=== PATIENT | female | born 2000 | race Two or more races ===

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

== ENCOUNTER 2022-05-17 09:45 | Emergency (ER) | payer OTHER ==
[~2022-05-17] VITALS: Ht 170.2 cm; Wt 56.7 kg
[~2022-05-17 09:45] MED LIST: TUSICOF CAPLET1 EACH PO
[2022-05-17] MEDS ORDERED: IBU400 MG PO (13:03)
== END 2022-05-17 14:56 | disposition home or self-care (01) ==
LOC: EMR PED 09:45
DX: T14.90XA Injury, unspecified, initial encounter (principal); V49.3XXA Car occupant (driver) (passenger) injured in unspecified nontraffic accident, initial encounter; Y93.9 Activity, unspecified; Y92.413 State road as the place of occurrence of the external cause; Y99.9 Unspecified external cause status; M41.9 Scoliosis, unspecified

== ENCOUNTER 2022-07-31 16:21 | Emergency (ER) | payer OTHER ==
[~2022-07-31] VITALS: Ht 157.5 cm; Wt 56.7 kg
[~2022-07-31 16:21] MED LIST changes: +IBU400 MG PO
[2022-07-31] MEDS ORDERED: AMOX1TAB5 PO (18:06)
== END 2022-07-31 18:52 | disposition home or self-care (01) ==
LOC: ER 16:21 → EMR PED 16:24 → ER 16:24 → EMR PED 18:52
DX: R59.0 Localized enlarged lymph nodes (principal)